=== PATIENT | female | born 1965 | race Caucasian/White ===

== ENCOUNTER 2021-07-18 13:33 | Emergency (ER) | payer MEDICAID, OTHER ==
[~2021-07-18] VITALS: Ht 160 cm; Wt 86.2 kg
--- NOTE | 2021-07-18 13:45 | NUR ---
PT BIBA RA 88/ PT SLIGHTLY ALTERED BUT VERBALLY RESPONSIVE, CONTINUOUSLY STATEST "IM SCARED"/I DONT KNOW. PER PARAMEDICS, COWORKER CALLED 911 WHEN THEY OBSERVED PT HAVING TREMORS AND LOSING CONSCIOUSNESS/POSSIBLY A SEIZURE. PT WAS AT WORK WHEN THIS HAPPENED. PT HX IS UNCLEAR. BUT PT DENIES HX OF SEIZURE. PT APPEARS IN MILD DISTRESS BUT VITALS ARE STABLE RECORDED. SEIZURE AND SAFETY PRECS MAINTAINED. MD AT BEDSIDE FOR MSE. BS CHECKED: 167, CTA CONSENT 0BTAINED/ WAIVING RENAL FX/ WELDING PROCESS ENGINEER NOTIFIED. RN KEPT 1:1 MONITORING WITH PT.
[2021-07-18] MEDS ORDERED: ONDANSETRON 4 MG/2 ML VIAL ONE ×2 (13:55→14:14)
[2021-07-18 14:00] VITALS: BP 124/68
[2021-07-18] MEDS ORDERED: ONDANSETRON 4 MG/2 ML VIAL IV ONE ×2 (14:00→16:00)
[2021-07-18] MEDS ORDERED: IV NORMAL SALINE 1000 ML BAG IV ONE (14:00)
[2021-07-18] MEDS ORDERED: NITROGLYCERIN 0.4 MG/TAB BOTTLE SL ONE ×2 (14:00→14:08)
--- NOTE | 2021-07-18 14:00 | NUR ---
RN TO ACCOMPANY PT TO CT/ON MONITOR/NSR 80-85. NITROGLYCERIN WAS GIVEN, D/T PT C/O: I FEEL SOMEONE SITTING ON MY CHEST, HR AND BP NORMAL PRIOR AND AFTER, RECORDED.
[2021-07-18] MEDS ORDERED: SWABABLE VALVE TRANSFER SET EA MC ONE (14:02)
[2021-07-18] MEDS ORDERED: IV NORMAL SALINE 250 ML IV ONE (14:03)
[2021-07-18] MEDS ORDERED: IOHEXOL 350 100 ML INFUS..BTL ONE (14:03)
--- NOTE | 2021-07-18 14:39 | NUR ---
ADAM PENA [id number] Addendum: 07/18/21 at 1439 by DOMINICO Pt back from CT, MARIO expressed concern over CT to radiology/who stated that it was normal.
[2021-07-18] MEDS ORDERED: FLUO10CA26 PO (14:50)
[2021-07-18] MEDS ORDERED: LISI10TA29 PO (14:50)
[2021-07-18] MEDS ORDERED: BUPR150T5 PO (14:50)
[2021-07-18] MEDS ORDERED: PROP20TA7 PO (14:50)
[2021-07-18] MEDS ORDERED: METOCLOPRAMIDE HCL 10 MG/2 ML VIAL IV ONE (15:00)
[2021-07-18] MEDS ORDERED: MORPHINE SULFATE 2 MG/1 ML DISP.SYRIN IV ONE (15:00)
[2021-07-18] MEDS ORDERED: diphenhydrAMINE 50 MG/1 ML VIAL IV ONE (15:00)
[2021-07-18 15:15] LABS: HEMATOCRIT 39.5 % (31.2-41.9); MEAN CORPUSCULAR HEMOGLOBIN 32.1 uug (24.7-32.8); MEAN CORPUSCULAR VOLUME 94.3 fL (75.5-95.3); PLATELET COUNT (AUTO) 263 K/uL (179-408)
[2021-07-18 15:25] LABS: CREATININE 1.2 mg/dL (0.6-1.3); POTASSIUM 4.5 mmol/L (3.5-5.1)
[2021-07-18 15:35] LABS: BILIRUBIN,DIRECT 0.1 mg/dL (0.0-0.2); BILIRUBIN,TOTAL 0.6 mg/dL (0.2-1.0); TOTAL PROTEIN, SERUM 6.8 g/dL (6.4-8.2)
[2021-07-18] MEDS ORDERED: CLOPIDOGREL 75 MG TABLET PO ONE (15:45)
--- NOTE | 2021-07-18 15:58 | NUR ---
PT VERBALIZED FEELING BETTER, REFUSED MEDICATIONS BENDARYL/MORPHINE/REGLAN.
[2021-07-18 16:14] LABS: *BILIRUBIN,URIN NEGATIVE (NEGATIVE); *BLOOD, URINE TRACE (NEGATIVE); *CLARITY,URINE CLEAR (CLEAR); *COLOR,URINE YELLOW (YELLOW); *KETONES,URINE 1+ (NEGATIVE); *UROBILINOGEN,URINE 0.2 E.U./dl (NORMAL); LEUKOCYTE ESTERASE ,URINE 1+ (NEGATIVE); NITRITE, URINE NEGATIVE (NEGATIVE); PH,URINE 8.5 (5.0-8.0); UGLUCOSE NEGATIVE (NEGATIVE)
[2021-07-18] MEDS ORDERED: CLOPIDOGREL 75 MG TABLET ONE (16:17)
[2021-07-18] MEDS ORDERED: ASPIRIN 325 MG TABLET ONE (16:17)
--- NOTE | 2021-07-18 16:21 | NUR ---
PT FOR ADMISSION. DX: CHEST PAIN/STABLE. [facility] PT. ER CLERKS. WORKING ON AUTH.
--- NOTE | 2021-07-18 17:27 | NUR ---
MARIO S/W [facility]YL[facility] PENA. [facility] TRANSFER PENDING.
--- NOTE | 2021-07-18 17:57 | NUR ---
CALLED [facility] TO PROVIDE UPDATE ON PATIENT'S CONDITION RE: PT'S ALTERED MENTAL STATUS. PT HAS BEEN NOTED TO HAVE IMPROVED ALERTNESS COMPARED TO WHEN SHE FIRST CAME IN. HOWEVER, NOTED TO STILL BE ACTING OUT OF BASELINE REPORTED BY SON AT BEDSIDE. SHE IS ALSO NOTED TO HAVE MEMORY ISSUES MANIFESTED BY ASKING THE SAME QUESTIONS TO THE RN TAKING CARE OF HER, DESPITE PREVIOUS ANSWERS. S/W ARELI RN / WHO PROVIDED TRANSFER AND REPORT INFORMATION: [facility] DR REILLY/ PACO PENA [phone] PRN ALS 2100 [address]UP
[2021-07-18 18:02] LABS: BACTERIA,URINE FEW /HPF (NONE SEEN); RBC,URINE 0-3 /HPF (0-3); SQUAMOUS EPITHELIAL CELL,UR FEW /HPF (NONE SEEN)
--- NOTE | 2021-07-18 18:15 | NUR ---
REPORT GIVEN TO DEIRDRE RAJPUT.
--- NOTE | 2021-07-18 19:09 | NUR ---
REPORT GIVEN TO JOSELYN RAJPUT.
--- NOTE | 2021-07-18 20:00 | NUR ---
PATIENT A/OX3, AMBULATORY WITH STEADY GAIT TO BATHROOM. NO DISTRESS NOTED.
--- NOTE | 2021-07-18 20:50 | NUR ---
TAWANDA FROM [facility] CALLED WITH UPDATED ETA OF 2129.
--- NOTE | 2021-07-18 22:17 | NUR ---
RUBI FROM [facility] WITH NEW ETA OF 2230.
--- NOTE | 2021-07-18 22:54 | NUR ---
GAVE SBAR REPORT TO [facility]
== END 2021-07-18 23:12 | disposition short-term general hospital (02) ==
LOC: ER 13:33
DX: R07.9 Chest pain, unspecified (principal); R56.9 Unspecified convulsions; R41.82 Altered mental status, unspecified; R94.31 Abnormal electrocardiogram [ECG] [EKG]; Z79.899 Other long term (current) drug therapy; I10 Essential (primary) hypertension; Z85.41 Personal history of malignant neoplasm of cervix uteri; Z20.822 Contact with and (suspected) exposure to COVID-19
CPT/HCPCS: 36415; 70450; 71275; 80048; 80076; 81001; 82962; 83690; 84484; 85025; 85379; 85730; 87086; 87426; 93005; 96361; 96374; 96376; 99285; J2405 ×2; Q9967; 70030-TC; A4663; J7030; J7050